=== PATIENT | female | born 1950 | race Caucasian/White ===

== ENCOUNTER 2021-08-15 18:54 | Inpatient (IN) ==
[2021-08-15 19:38] LABS: Basophils # (auto) 0.02 K/uL (0-0.2); Basophils % (auto) 0.6 %; Eosinophils # (auto) 0.15 K/uL (0-0.5); Eosinophils % (auto) 4.3 %; Hematocrit (blood only) 36.5 % (37-47); Hemoglobin 12.5 g/dL (12.0-16.0); Immature Granulocytes # (auto) 0.02 K/uL (0.00-0.02); Immature Granulocytes % (auto) 0.6 %; Lymphocytes # (auto) 1.02 K/uL (1.2-3.4); Lymphocytes % (auto) 29.6 %; Mean Corpuscular Hemoglobin 31.7 pg (25-34); Mean Corpuscular Hgb Conc 34.2 g/dL (32-36); Mean Corpuscular Volume 92.6 fL (80-100); Mean Platelet Volume 9.5 fL (7.4-10.4); Monocytes % (auto) 23.2 %; Neutrophils # (auto) 1.44 K/uL (1.4-6.5); Neutrophils % (auto) 41.7 %; Platelet Count 281 K/uL (130-400); Red Blood Count 3.94 M/uL (4.2-5.4); White Blood Count 3.45 K/uL (4.8-10.8)
--- NOTE | 2021-08-15 19:44 | XRay Report ---
SINGLE VIEW CHEST CLINICAL HISTORY: Cough and fever FINDINGS: An AP, portable, upright chest radiograph is obtained. No prior studies are available for c omparison at the time of dictation. A right subclavian central venous infusion port is in place. The cardiomediastinal silhouette is unremarkable noting atherosclerotic calcification of the thoracic aor ta. There is mild elevation of the right hemidiaphragm and bibasilar atelectasis. No airspace consoli dation or large pleural effusion is identified. No pneumothorax is seen. The skeletal structures are osteopenic. The bony thorax is grossly intact. IMPRESSION: No active disease in the chest. ACT 112: Negative or not required by law. Electronically signed by: Carl Loya M.D. 08/15/2021 7:43 PM
[2021-08-15 19:46] LABS: Albumin Level 2.6 gm/dl (3.4-5.0); Aspartate Aminotransferase 24 U/L (15-37); Blood Urea Nitrogen 11 mg/dl (7-18); Calcium 8.4 mg/dl (8.5-10.1); Carbon Dioxide 18 mmol/L (21-32); Chloride 99 mmol/L (98-107); Est GFR (African American) 106.3 ml/min; Est GFR (Non-African American) 91.7 ml/min; Glucose 100 mg/dl (70-99); Potassium 4.1 mmol/L (3.5-5.1); Sodium 129 mmol/L (136-145)
[2021-08-15 19:55] LABS: Alanine Aminotransferase 14 U/L (12-78); Albumin Globulin Ratio 0.5 (0.9-2); Alkaline Phosphatase 62 U/L (45-117); Bilirubin,Total 0.8 mg/dl (0.2-1); Globulin 5.2 gm/dl (2.5-4.0); Total Protein 7.8 gm/dl (6.4-8.2)
--- NOTE | 2021-08-15 21:39 | Emergency Department Note ---
History of Present Illness General Chief complaint: Illness Stated complaint: NOT EATING, HURTS TO TOUCH, WEAKNESS Time Seen by Provider: 08/15/21 21:31 History of Present Illness Maximum Pain Intensity: 10 This is a 70-year-old female that presents to the emergency department via private vehicle with complaints of "not eating, pain, weakness". The patient on initial evaluation was not accompanied by any family members. The patient noted that for the past 3 weeks she has been feeling weak, overall unwell and what she describes as sick. She also notes that a few nights ago she had some vomiting that has since resolved. She feels a diffuse weakness and tired sensation. She also has body aches and a headache. She denies any sore throat, chest pain, shortness of breath, nausea, vomiting, diarrhea or cough. No close contacts with similar symptoms. Per report it does appear that she has a history of multiple myeloma. She follows locally with Dr. Spears of [facility]. The [facility] salazar's then came to the bedside. He confirmed the history. It seems as though a lot of the symptoms started shortly after she was treated for a UTI earlier this month. I will note that the patient initially denied any pertinent past medical history, surgeries or allergies. The patient also was not able to state her current town where she resides. She also was unsure of the year and thought that it was 2000. Home Medications Medication Instructions Recorded Confirmed Type albuterol sulfate 90 mcg/actuation 2 puff INHALATION Q4H PRN 08/15/21 08/15/21 History aerosol inhaler (ProAir HFA) aspirin 81 mg tablet,delayed 81 mg PO QAM 08/15/21 08/15/21 History release (Aspirin Low Dose) cetirizine 10 mg tablet (Zyrtec) 10 mg PO DAILY PRN 08/15/21 08/15/21 History clobetasol 0.05 % topical cream 1 applic TOPICAL BID PRN 08/15/21 08/15/21 History (Temovate) dexamethasone 4 mg tablet 20 mg PO WK 08/15/21 08/15/21 History (Decadron) enalapril maleate 10 mg tablet 10 mg PO QAM 08/15/21 08/15/21 History (Vasotec) epinephrine 0.3 mg/0.3 mL 0.3 mg IM ONCE PRN 08/15/21 08/15/21 History injection, auto-injector (EpiPen) levothyroxine 112 mcg tablet 112 mcg PO QAM 08/15/21 08/15/21 History (Synthroid) lorazepam 0.5 mg tablet (Ativan) 0.5 - 1 mg PO HS PRN 08/15/21 08/15/21 History ondansetron HCl 8 mg tablet 8 mg PO TID PRN 08/15/21 08/15/21 History paroxetine HCl 20 mg tablet (Paxil) 20 mg PO QAM 08/15/21 08/15/21 History pomalidomide 4 mg capsule See Rx Instructions .ROUTE .COMPLEX 08/15/21 08/15/21 History (Pomalyst) Allergies Allergy/AdvReac Type Severity Reaction Status Date / Time mushroom Allergy Severe Hives,Swell Unverified 08/15/21 23:23 ing adhesive Allergy Rash Unverified 08/15/21 23:23 bee venom protein (honey bee) Allergy Anaphylaxis Unverified 08/15/21 23:23 latex Allergy Rash Unverified 08/15/21 23:23 morphine Allergy Excess Unverified 08/15/21 23:23 Drowsiness Penicillins Allergy Tongue Unverified 08/15/21 23:23 Swelling Past Med/Surg History Medical History Hx of multiple myeloma Surgical History (Updated 08/16/21 @ 04:42 by Maxi Noriega PA-C) No pertinent past surgical history Social History Smoking Status: Never smoker Preferred Language: Setsw[place] Feels Safe at Home: Yes Review of Systems A total of 10 systems reviewed and were otherwise negative Physical Exam Vital Signs Vital Signs - 24 hr 08/15/21 19:05 Temperature 37.3 C Temperature Source Temporal Artery Scan Pulse Rate 72 Respiratory Rate 20 Respiratory Effort / Characteristics Non-Labored Spontaneous Respiratory Depth Normal Respiratory Pattern Regular Blood Pressure 126/71 Blood Pressure Mean 89 Blood Pressure Position Sitting Pulse Oximetry 98 Oxygen Delivery Method Room Air Sepsis Recent Fever Within 48 Hours No Sepsis New/Unexplained Change in Mental Status No Sepsis Action Taken by Nursing No Action Required VITAL SIGNS - Vital signs and nursing notes were reviewed. Stable and afebrile. GENERAL -70-year-old female appearing her stated age who is in no acute distress. Communicates well with provider and answers questions appropriately. SKIN - Without rashes. No meningeal or petechial rash. HEAD - NC/AT. EYES - PERRL with EOMI bilaterally. Sclera anicteric. EARS - No deformities of external structures noted on gross examination bilaterally. NOSE - Midline and without cyanosis. MOUTH/OROPHARYNX - Without perioral cyanosis. NECK - Neck with FROM. No nuchal rigidity. LUNGS - Chest wall symmetric without accessory muscle use, intercostals retractions, or central cyanosis. Normal vesicular breath sounds CTA B/L. No wheezes, rales, or rhonchi appreciated. CARDIAC - RRR with S1/S2. No murmur, rubs, or gallops appreciated. ABDOMEN - Abdominal contour normal without pulsations or visible masses. BS normoactive all four quadrants. No tenderness, palpable masses, hepatosplenomegaly, or ascites noted. EXTREMITIES - No clubbing or peripheral cyanosis. +5/5 strength noted in UE/LE bilaterally. NEUROLOGIC - Cranial nerves II through XII grossly intact. PSYCH -patient is alert and oriented to person and place but not to day, month or year. She is also unable to state the current town where she resides. Othe rwise, cooperates fully with examiner. Pt is very pleasant and interacts well with examiner. Course Administered Medications Lactated Ringer's (Lr) 1,000 mls @ 100 mls/hr IV .Q10H STA Stop: 08/16/21 08:18 Last Admin: 08/15/21 22:51 Dose: 100 mls/hr Documented by: [id number] Discontinued Medications Gadobutrol (Gadobutrol 65ml Vial) 7 ml IV ONCE ONE Stop: 08/16/21 01:31 Last Admin: 08/16/21 01:30 Dose: 7 ml Documented by: [id number] Medical Decision Making Laboratory Data Result diagrams: 08/15/21 19:18 08/15/21 19:18 Lab Results 08/15/21 08/15/21 08/15/21 Range/Units 19:18 19:18 19:18 WBC 3.45 L (4.8-10.8) K/uL RBC 3.94 L (4.2-5.4) M/uL Hgb 12.5 (12.0-16.0) g/dL Hct 36.5 L (37-47) % MCV 92.6 (80-100) fL MCH 31.7 (25-34) pg MCHC 34.2 (32-36) g/dL RDW Std Deviation 51.0 H (36.4-46.3) fL RDW Coeff of Ryan 15.0 H (11.5-14.5) % Plt Count 281 (130-400) K/uL MPV 9.5 (7.4-10.4) fL Immature Gran % (Auto) 0.6 % Neut % (Auto) 41.7 % Lymph % (Auto) 29.6 % Russell % (Auto) 23.2 % Eos % (Auto) 4.3 % Baso % (Auto) 0.6 % Neut # (Auto) 1.44 (1.4-6.5) K/uL Lymph # (Auto) 1.02 L (1.2-3.4) K/uL Russell # (Auto) 0.80 H (0.11-0.59) K/uL Eos # (Auto) 0.15 (0-0.5) K/uL Baso # (Auto) 0.02 (0-0.2) K/uL Immature Gran # (Auto) 0.02 (0.00-0.02) K/uL Sodium 129 L (136-145) mmol/L Potassium 4.1 (3.5-5.1) mmol/L Chloride 99 (98-107) mmol/L Carbon Dioxide 18 L (21-32) mmol/L Anion Gap 12.0 H (3-11) BUN 11 (7-18) mg/dl Creatinine 0.64 (0.6-1.2) mg/dl Est Cr Clr Drug Dosing Not Reportable Est GFR ( Amer) 106.3 ml/min Est GFR (Non-Af Amer) 91.7 ml/min BUN/Creatinine Ratio 17.0 (10-20) Glucose 100 H (70-99) mg/dl Osmolality (280-300) mOsm/kg Lactate (0.4-2.0) mmol/L Calcium 8.4 L (8.5-10.1) mg/dl Magnesium (1.8-2.4) mg/dl Total Bilirubin 0.8 (0.2-1) mg/dl AST 24 (15-37) U/L ALT 14 (12-78) U/L Alkaline Phosphatase 62 (45-117) U/L Total Protein 7.8 (6.4-8.2) gm/dl Albumin 2.6 L (3.4-5.0) gm/dl Globulin 5.2 H (2.5-4.0) gm/dl Albumin/Globulin Ratio 0.5 L (0.9-2) Procalcitonin (0-0.5) ng/ml TSH (0.300-4.500) uIu/ml Lyme Disease IgG Ab (Negative) Lyme Disease IgM Ab (Negative) COVID-19 Eval Order Covid19 at [facility] SARS-CoV-2 (PCR) (Negative) 08/15/21 08/15/21 08/15/21 Range/Units 19:18 19:18 19:18 WBC (4.8-10.8) K/uL RBC (4.2-5.4) M/uL Hgb (12.0-16.0) g/dL Hct (37-47) % MCV (80-100) fL MCH (25-34) pg MCHC (32-36) g/dL RDW Std Deviation (36.4-46.3) fL RDW Coeff of Ryan (11.5-14.5) % Plt Count (130-400) K/uL MPV (7.4-10.4) fL Immature Gran % (Auto) % Neut % (Auto) % Lymph % (Auto) % Russell % (Auto) % Eos % (Auto) % Baso % (Auto) % Neut # (Auto) (1.4-6.5) K/uL Lymph # (Auto) (1.2-3.4) K/uL Russell # (Auto) (0.11-0.59) K/uL Eos # (Auto) (0-0.5) K/uL Baso # (Auto) (0-0.2) K/uL Immature Gran # (Auto) (0.00-0.02) K/uL Sodium (136-145) mmol/L Potassium (3.5-5.1) mmol/L Chloride (98-107) mmol/L Carbon Dioxide (21-32) mmol/L Anion Gap (3-11) BUN (7-18) mg/dl Creatinine (0.6-1.2) mg/dl Est Cr Clr Drug Dosing Est GFR ( Amer) ml/min Est GFR (Non-Af Amer) ml/min BUN/Creatinine Ratio (10-20) Glucose (70-99) mg/dl Osmolality (280-300) mOsm/kg Lactate (0.4-2.0) mmol/L Calcium (8.5-10.1) mg/dl Magnesium 2.2 (1.8-2.4) mg/dl Total Bilirubin (0.2-1) mg/dl AST (15-37) U/L ALT (12-78) U/L Alkaline Phosphatase (45-117) U/L Total Protein (6.4-8.2) gm/dl Albumin (3.4-5.0) gm/dl Globulin (2.5-4.0) gm/dl Albumin/Globulin Ratio (0.9-2) Procalcitonin 0.21 (0-0.5) ng/ml TSH 0.751 (0.300-4.500) uIu/ml Lyme Disease IgG Ab (Negative) Lyme Disease IgM Ab (Negative) COVID-19 Eval Order SARS-CoV-2 (PCR) NEGATIVE (Negative) 08/15/21 08/15/21 08/15/21 Range/Units 22:13 22:13 22:13 WBC (4.8-10.8) K/uL RBC (4.2-5.4) M/uL Hgb (12.0-16.0) g/dL Hct (37-47) % MCV (80-100) fL MCH (25-34) pg MCHC (32-36) g/dL RDW Std Deviation (36.4-46.3) fL RDW Coeff of Ryan (11.5-14.5) % Plt Count (130-400) K/uL MPV (7.4-10.4) fL Immature Gran % (Auto) % Neut % (Auto) % Lymph % (Auto) % Russell % (Auto) % Eos % (Auto) % Baso % (Auto) % Neut # (Auto) (1.4-6.5) K/uL Lymph # (Auto) (1.2-3.4) K/uL Russell # (Auto) (0.11-0.59) K/uL Eos # (Auto) (0-0.5) K/uL Baso # (Auto) (0-0.2) K/uL Immature Gran # (Auto) (0.00-0.02) K/uL Sodium (136-145) mmol/L Potassium (3.5-5.1) mmol/L Chloride (98-107) mmol/L Carbon Dioxide (21-32) mmol/L Anion Gap (3-11) BUN (7-18) mg/dl Creatinine (0.6-1.2) mg/dl Est Cr Clr Drug Dosing Est GFR ( Amer) ml/min Est GFR (Non-Af Amer) ml/min BUN/Creatinine Ratio (10-20) Glucose (70-99) mg/dl Osmolality 267 L (280-300) mOsm/kg Lactate 1.0 (0.4-2.0) mmol/L Calcium (8.5-10.1) mg/dl Magnesium (1.8-2.4) mg/dl Total Bilirubin (0.2-1) mg/dl AST (15-37) U/L ALT (12-78) U/L Alkaline Phosphatase (45-117) U/L Total Protein (6.4-8.2) gm/dl Albumin (3.4-5.0) gm/dl Globulin (2.5-4.0) gm/dl Albumin/Globulin Ratio (0.9-2) Procalcitonin (0-0.5) ng/ml TSH (0.300-4.500) uIu/ml Lyme Disease IgG Ab Negative (Negative) Lyme Disease IgM Ab Negative (Negative) COVID-19 Eval Order SARS-CoV-2 (PCR) (Negative) Imaging Data Radiologist's Impression: Chest X-Ray 08/15/21 19:16 SINGLE VIEW CHEST CLINICAL HISTORY: Cough and fever FINDINGS: An AP, portable, upright chest radiograph is obtained. No prior studies are available for comparison at the time of dictation. A right subclavian central venous infusion port is in place. The cardiomediastinal silhouette is unremarkable noting atherosclerotic calcification of the thoracic aorta. There is mild elevation of the right hemidiaphragm and bibasilar atelectasis. No airspace consolidation or large pleural effusion is identified. No pneumothorax is seen. The skeletal structures are osteopenic. The bony thorax is grossly intact. IMPRESSION: No active disease in the chest. ACT 112: Negative or not required by law. Electronically signed by: Carl Loya M.D. 08/15/2021 7:[address] HEAD: No ICH, mass effect or edema. No evidence of acute cortical stroke. Lytic calvarial lesions. Old facial trauma Radiologist: Khalif Angeles M.D. Study ready at 22:36 and initial results transmitted at 22:38 MDM Narrative Patient was seen and evaluated as above in room C 12. Review was performed of nursing notes and vital signs. I did review pertinent previous visits and patient history. After obtaining a thorough history and physical examination the above work up was performed. Patient presents to us today with 3 weeks of overall fatigue, weakness, diarrhea, loss of appetite. She is overall nontoxic on exam but is not oriented to time. No signs of meningitis or encephalitis on exam. Vital signs overall stable. Initially the patient denied any pertinent past medical history, surgeries or allergies. Patient's then came to bedside and was able to confirm she has a history of multiple myeloma. Patient has never been to this facility before. She follows with Dr. Spears of [facility] for her multiple myeloma. No focal weakness or deficit on exam. Options of care were discussed with the patient and at bedside. IV access was established. Labs were drawn. Chest x-ray was already performed. This was negative. Leukopenia noted at 3.45. No anemia. No emergent metabolic disturbance beyond that of mild hyponatremia at 129. Carbon dioxide 18. Glucose 100. Pro-Martin 0.21. TSH reveals euthyroid state. Covid testing negative. EKG was performed. This reveals normal sinus rhythm at a rate of [address] elevation. QTc 423. QRS 86. With the patient having the hyponatremia at 129 in the setting of symptoms as listed above it is felt that further evaluation and management the inpatient setting is warranted. CT scan was obtained of the head as the patient was not oriented to time and believe that it was 2000. CT scan of the head negative for emergent process. Case discussed with the hospitalist. Please refer to further documentation regarding her stay. Case was discussed with the attending physician. GCS: 15 In the evaluation and treatment of this patient the following differential diagnoses were entertained: Meningitis, encephalitis, electrolyte disturbance, TX, PE, dehydration, infection, among others. Impression & Plan Acute hyponatremia, Fatigue, Weakness Discharge Plan Visit Data Chief Complaint: Illness Stated Complaint: NOT EATING, HURTS TO TOUCH, WEAKNESS ED Provider: Omar Caballero ED Midlevel Provider: Maxi Noriega Discharge Problem: Acute hyponatremia, Fatigue, Weakness Patient Disposition: Admitted As Inpatient Condition: Good Discharge Instructions Interventions: ED Discharge Assessment Last Done: 08/16/21 03:49
[2021-08-15] MEDS ORDERED: LACTATED RINGER'S 1,000 ML IV STA (22:19)
[2021-08-15 23:30] LABS: Magnesium 2.2 mg/dl (1.8-2.4); Thyroid Stimulating Hormone 0.751 uIu/ml (0.300-4.500)
[2021-08-15 23:52] LABS: Lyme Ab IgG w/WB Rflx Negative (Negative); Lyme Ab IgM w/WB Rflx Negative (Negative)
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
[2021-08-16] MEDS ORDERED: GADOBUTROL 65ML VIAL IV ONE (01:30)
[2021-08-16] MEDS ORDERED: PROMETHAZINE HCL 12.5 MG in SODIUM CHLORIDE 0.9% 50 ML IV PRN (02:43)
[2021-08-16] MEDS ORDERED: CETIRIZINE HCL 10 MG TABLET PO PRN (02:43)
[2021-08-16] MEDS ORDERED: ACETAMINOPHEN 325 MG TAB PO PRN (02:43)
[2021-08-16] MEDS ORDERED: CLOBETASOL PROPIONATE 0.05% OINT 15 GM TUBE EXT PRN (03:53)
[2021-08-16] MEDS: LEVOTHYROXINE SODIUM 112 MCG TABLET PO SCH (06:20)
[2021-08-16 06:47] LABS: Basophils # (auto) 0.01 K/uL (0-0.2); Basophils % (auto) 0.3 %; Eosinophils # (auto) 0.13 K/uL (0-0.5); Eosinophils % (auto) 3.7 %; Hematocrit (blood only) 32.1 % (37-47); Hemoglobin 10.7 g/dL (12.0-16.0); Immature Granulocytes # (auto) 0.01 K/uL (0.00-0.02); Immature Granulocytes % (auto) 0.3 %; Lymphocytes # (auto) 1.43 K/uL (1.2-3.4); Lymphocytes % (auto) 41.1 %; Mean Corpuscular Hemoglobin 30.7 pg (25-34); Mean Corpuscular Hgb Conc 33.3 g/dL (32-36); Mean Corpuscular Volume 92.2 fL (80-100); Monocytes # (auto) 0.83 K/uL (0.11-0.59); Monocytes % (auto) 23.9 %; Neutrophils # (auto) 1.07 K/uL (1.4-6.5); Neutrophils % (auto) 30.7 %; Platelet Count 244 K/uL (130-400); RDW Coefficient of Variation 15.1 % (11.5-14.5); RDW Standard Deviation 51.3 fL (36.4-46.3); Red Blood Count 3.48 M/uL (4.2-5.4); White Blood Count 3.48 K/uL (4.8-10.8)
[2021-08-16 07:19] LABS: BUN Creatinine Ratio 19.2 (10-20); Calcium 7.8 mg/dl (8.5-10.1); Creatinine Clr Calc Pharmacy 105.8 ml/min; Est GFR (Non-African American) 100.1 ml/min; Potassium 3.5 mmol/L (3.5-5.1)
--- NOTE | 2021-08-16 07:21 | CT Scan Report ---
CT head/brain wo con CLINICAL HISTORY: AMS Technique: Contiguous axial CT images of the head were acquired from the base of the skull to the ryan robert without intravenous contrast administration. Images were viewed in brain, subdural and [facility]. Automated dose lowering techniques and/or adjustment according to patient size were utilized for this exam. Comparison: None available at the time of this dictation. Findings: The ventricles, basal cisterns, and cerebral sulci are normal. There is no acute intracranial hemorrh age or evidence of acute territorial infarction. Neither mass effect, shift of the midline structures , nor abnormal extra-axial fluid collections are shown. Imaged portions of the paranasal sinuses and mastoid air cells are clear. The orbits appear normal. There are no acute fractures of the calvaria or scalp swelling. Multiple lytic lesions are seen with in the calvaria. Impression: 1. No acute intracranial hemorrhage, evidence of acute territorial infarction, or other acute intrac ranial disease process. 2. Multiple lytic lesions of the calvaria. ACT 112: Negative or not required by law. Electronically signed by: Lan Basurto M.D. 08/16/2021 7:19 AM
[2021-08-16] MEDS: ENALAPRIL MALEATE 10 MG TAB PO SCH (07:43)
[2021-08-16] MEDS: ASPIRIN 81 MG ECTAB PO SCH (07:43)
[2021-08-16] MEDS: PARoxetine HCL 20 MG TAB PO SCH (07:43)
--- NOTE | 2021-08-16 08:35 | Magnetic Resonance Report ---
MR brain wo/w con CLINICAL HISTORY: encephalopathy, cognitive impairment TECHNIQUE: Multiplanar and multisequence MR images of the brain were obtained prior to and following administration of gadolinium contrast. Comparison: None available at the time of this dictation. FINDINGS: No abnormal restricted diffusion is identified. The white matter is unremarkable. The ventricular sys tem is normal in appearance. There is no evidence of acute intraparenchymal hemorrhage. No extra axia l fluid collections are seen. There are no masses, mass effect, or midline shift. No abnormal enhance ment is seen. The corpus callosum, pituitary gland, and cerebellar tonsils appear grossly unremarkab le. Flow voids of the major intracranial arterial vessels are identified. The imaged portions of the para nasal sinuses, mastoid air cells, and orbits are unremarkable. Innumerable enhancing lesions are seen in the calvarium. IMPRESSION: No intracranial abnormalities. Innumerable enhancing lesions in the calvarium concerning for metastat ic disease or myeloma. ACT 112: Negative or not required by law. Electronically signed by: Lan Basurto M.D. 08/16/2021 8:34 AM
[2021-08-16] MEDS ORDERED: NSS + 20MEQ KCL 20 MEQ/1,000 ML BAG IV ONE (10:00)
--- NOTE | 2021-08-16 15:52 | Hospitalist Progress Note ---
Date of Service August 16, 2021 Assessment & Plan (1) Encephalopathy: Plan: Metastatic disease Ongoing short-term memory issues intermittently Likely secondary to metastatic disease Acute metabolic encephalopathy MRI Brain:No intracranial abnormalities. Innumerable enhancing lesions in the calvarium concerning for metastatic disease or myeloma. Mental status seem to be back to baseline Neurology consulted for input Follow up Cultures-- pending Hyponatremia secondary to diarrheal illness Rule out C. difficile if recurrence of diarrhea Monitor sodium levels Sodium 131 Urine osmolality, urine sodium pending H/O UTI recently UA pending H/O Recurrent multiple myeloma S/P HSCT Ongoing chemotherapy Follows with [facility] oncology Will need follow-up with oncology upon discharge Resume promalidomide as able Hypertension BP stable Continue enalapril Hypothyroidism Euthyroid Continue levothyroxine DVT Px: Lovenox SQ Code Status Full code Admission and Anticipated Discharge Date Admission Date: August 16, 2021 Subjective Patient is seen and examined at bedside States feeling much better today Admits to having short term memory issues intermittently Denies any chest pain, shortness breath, dizziness, nausea, vomiting. Offers no other complaints Review of Systems Review of Systems: All systems reviewed & are unremarkable except as noted in Subjective Physical Exam Physical Exam: Physical Exam: Vitals signs as noted above General Appearance:Moderately built and nourished, no apparent distress Head: normocephalic, Atraumatic Eyes: normal inspection, EOMI Neck: supple, Trachea midline Respiratory/Chest: Normal breath sounds, CTA, No accessory muscle use Cardiovascular: S1, S2, No murmur Abdomen/GI:Soft, Non tender, Bowel sounds present Extremities/Musculoskeletal:normal inspection, no edema Neurologic/Psych:AAOX3, grossly no focal neurological deficits Skin: normal color, warm Results & Data Results & Data ([facility]) Vital Signs (Past 12 Hours) Vital Signs Temp Pulse Pulse Resp BP Pulse Ox 08/16/21 14:54 36.9 C 65 18 110/69 95 08/16/21 11:15 36.7 C 58 L 18 121/71 96 08/16/21 07:49 36.5 C 53 L 18 128/73 96 08/16/21 07:30 56 L 08/16/21 06:15 56 L 08/16/21 04:51 36.4 C L 63 18 128/69 98 08/16/21 04:23 36.4 C L 63 16 128/69 98 Laboratory Results Short CBC 08/15/21 08/16/21 Range/Units 19:18 06:24 WBC 3.45 L 3.48 L (4.8-10.8) K/uL Hgb 12.5 10.7 L (12.0-16.0) g/dL Hct 36.5 L 32.1 L (37-47) % Plt Count 281 244 (130-400) K/uL BMP 08/15/21 08/16/21 19:18 06:24 Sodium 129 L 131 L Potassium 4.1 3.5 Chloride 99 101 Carbon Dioxide 18 L 22 BUN 11 9 Creatinine 0.64 0.49 L Glucose 100 H 104 H Calcium 8.4 L 7.8 L Liver Function 08/15/21 Range/Units 19:18 Total Bilirubin 0.8 (0.2-1) mg/dl AST 24 (15-37) U/L ALT 14 (12-78) U/L Alkaline Phosphatase 62 (45-117) U/L Albumin 2.6 L (3.4-5.0) gm/dl
--- NOTE | 2021-08-16 22:40 | Consultation Report ---
NEUROLOGY CONSULTATION NOTE DATE OF CONSULTATION: 08/16/2021 REQUESTING PHYSICIAN: Dr. Rico. CHIEF COMPLAINT: Altered mental status. HISTORY OF PRESENT ILLNESS: A 70-year-old female with a history of multiple myeloma, presented to [facility] Emergency Department for forgetfulness/confusion. Per collateral/chart review, this has been ongoi ng for a period of time. Symptoms are thought to be attributed to chemo brain per family/. T he was concerned that the patient was going downhill; therefore, took her to the Emergency De partment. She was seen in the Emergency Department 3 days ago at [facility], recommended admission for electrolyte problems. The patient did leave AMA due to wait time and brought to the ER here in [facility] for further assessment. On exam today, patient reported feeling much better without comp laints or concerns. She denies pain. Neurology was consulted on admission for concern for altered m ental status. ALLERGIES: MUSHROOMS, ADHESIVE TAPE, BEE VENOM, LATEX, MORPHINE, PENICILLINS. HOME MEDICATIONS: Albuterol, aspirin, Decadron, Vasotec, epinephrine as needed, Synthroid, Ativan as needed, Zofran, Paxil, Pomalyst. PAST MEDICAL HISTORY: Hypertension, hypothyroidism, recurrent multiple myeloma, status post ongoing chemotherapy, anxiety, mood disorder. PAST SURGICAL HISTORY: Right knee surgery, vascular procedure, BTL, cholecystectomy, left hip replac ement. FAMILY HISTORY: Colon cancer, diabetes, hypothyroidism, asthma, breast cancer. SOCIAL HISTORY: Nonsmoker, no alcohol intake. Worked as a prior RN. REVIEW OF SYSTEMS: All other review of systems was negative except as noted above in the HPI. PHYSICAL EXAMINATION: VITAL SIGNS: Blood pressure 134/62, pulse of 66, temperature is 36.9 degrees Celsius. GENERAL: The patient is awake, alert, appears stated age, no distress. HEENT: Head is normocephalic and atraumatic. She has normal eyelids, normal conjunctivae. NECK: Supple. LUNGS: Normal respiratory effort. CARDIAC: Pulses are intact. ABDOMEN: Nondistended. SKIN: She has no skin rash. PSYCHIATRIC: Normal mood and normal affect. NEUROLOGIC: She is awake, alert, oriented to her age, month, and disoriented to the year. Her atten tion is normal. Her knowledge is poor. She is following simple commands and she can repeat. Speech is soft. Pupils are symmetric. Extraocular muscles are intact. Facial sensation intact. No facia l asymmetry. Intact hearing. Palate is symmetric. Good shoulder shrug. Tongue is midline. Gait ev aluation deferred. She has no tremor, no ataxia with [id number] testing. Sensation is intact. Muscle tone is normal. Muscle exam is 5/5 throughout except for the left hand weakness, which she is contributing to pain in the left wrist/swelling due to possible contusion. DIAGNOSTIC TESTING AND LABORATORY VALUES: WBC 3.48, hemoglobin 10.7, platelet count 244. Sodium is 131, potassium is 3.5, BUN is 9, creatinine 0.49, glucose is 104, calcium 7.8. Ammonia is 33.7. TSH is normal. Procalcitonin is 0.21. COVID-19 was negative. MRI of the brain showed no intracranial abnormality. Enhancing lesions in the calvarium concerning for metastatic disease or myeloma. No israel dence of acute stroke. The white matter is unremarkable. The ventricular system is normal in appear ance. No evidence of acute intraparenchymal hemorrhage. ASSESSMENT AND PLAN: A 70-year-old woman with history of multiple myeloma, status post/receiving candi motherapy, admitted with concerns for altered mental status/weakness. Upon admission, the patient wa s noted to have an elevated ammonia level as well as hyponatremia. The patient does not appear encep halopathic and very pleasant this afternoon. MRI of the brain is reassuring. It does not show signs of acute stroke or subcortical leukoencephalopathy or severe cerebral volume loss. On exam, the pat ient was disoriented to the year as well as the president and had some certain amnesia related to tavon or events. The patient certainly may have mild cognitive impairment in the setting of known multiple myeloma. At this time, I do not believe any acute neurological condition is going on and will certa inly benefit from seeing neurology on an outpatient basis for signs of cognitive impairment. The pat ient may benefit from formal neuropsychological testing as an outpatient. I would also encourage rev ersible causes of memory loss including checking a vitamin B12 level, folic acid level. We will defe r to the hospitalist team for management of her hyponatremia, which may be contributing to some of he r weakness. The patient can otherwise follow up with neurology on an outpatient basis. No additiona l neurological testing is needed while inpatient. Please contact me with any additional questions or concerns. Job ID: [id number]
[2021-08-17] MEDS: LEVOTHYROXINE SODIUM 112 MCG TABLET PO SCH (05:18)
[2021-08-17 06:18] LABS: Appearance Urine Clear (Clear); Bilirubin Urine Negative (Negative); Blood Urine Negative (Negative); Color Urine Yellow; Glucose Urine UA Negative (Negative); Ketones Urine 2+ (Negative); Leukocyte Esterase Urine Negative (Negative); Nitrite Urine Negative (Negative); Protein Urine Negative (Negative); Specific Gravity Urine 1.009 (1.000-1.030); Urobilinogen Urine Negative (Negative); pH Urine 6.5 (4.5-7.5)
[2021-08-17 06:36] LABS: Hematocrit (blood only) 31.2 % (37-47); Hemoglobin 10.7 g/dL (12.0-16.0); Mean Corpuscular Hemoglobin 31.2 pg (25-34); Mean Corpuscular Hgb Conc 34.3 g/dL (32-36); Mean Platelet Volume 9.3 fL (7.4-10.4); Platelet Count 282 K/uL (130-400); RDW Coefficient of Variation 15.1 % (11.5-14.5); RDW Standard Deviation 50.5 fL (36.4-46.3); Red Blood Count 3.43 M/uL (4.2-5.4); White Blood Count 2.75 K/uL (4.8-10.8)
[2021-08-17 07:00] LABS: BUN Creatinine Ratio 15.5 (10-20); Calcium 7.7 mg/dl (8.5-10.1); Creatinine Clr Calc Pharmacy 123.8 ml/min; Est GFR (African American) 122.1 ml/min; Est GFR (Non-African American) 105.3 ml/min; Magnesium 2.3 mg/dl (1.8-2.4); Potassium 3.4 mmol/L (3.5-5.1)
[2021-08-17] MEDS: ENALAPRIL MALEATE 10 MG TAB PO SCH (07:35)
[2021-08-17] MEDS: ASPIRIN 81 MG ECTAB PO SCH (07:35)
[2021-08-17] MEDS: PARoxetine HCL 20 MG TAB PO SCH (07:35)
[2021-08-17] MEDS ORDERED: POTASSIUM CHLORIDE CRTAB 20 MEQ TABCR PO ONE (08:07)
--- NOTE | 2021-08-17 12:00 | Electrocardiogram Report ---
Test Reason : Blood Pressure : / mmHG Vent. Rate : 071 BPM Atrial Rate : 071 BPM P-R Int : 152 ms QRS Dur : 086 ms QT Int : 390 ms P-R-T Axes : 031 036 038 degrees QTc Int : 423 ms Poor data quality, interpretation may be adversely affected Normal sinus rhythm Normal ECG No previous ECGs available Confirmed by Rafiq San ([id number]) on 08/17/2021 12:00:03 PM Referred By: Rojelio Spears Confirmed By:Rafiq San
--- NOTE | 2021-08-17 17:48 | Hospitalist Progress Note ---
Date of Service August 17, 2021 Assessment & Plan (1) Encephalopathy: Plan: Metastatic disease Ongoing short-term memory issues intermittently Likely secondary to metastatic disease Acute metabolic encephalopathy MRI Brain:No intracranial abnormalities. Innumerable enhancing lesions in the calvarium concerning for metastatic disease or myeloma. Mental status is back to baseline Appreciate Neurology Input Needs formal neuropsychological testing as outpatient Needs follow-up with neurology upon discharge Abnormal blood culture 1/2: Staph species Likely contaminant Follow-up cultures Hyponatremia secondary to diarrheal illness Rule out C. difficile if recurrence of diarrhea Monitor sodium levels Sodium 135 Hypokalemia Replace electrolytes as needed H/O UTI recently UA not suggestive of UTI H/O Recurrent multiple myeloma S/P HSCT Ongoing chemotherapy Follows with [facility] oncology Will need follow-up with oncology upon discharge Resume promalidomide as able Hypertension BP stable Continue enalapril Hypothyroidism Euthyroid Continue levothyroxine DVT Px: Lovenox SQ Code Status Full code Admission and Anticipated Discharge Date Admission Date: August 16, 2021 Subjective Patient is seen and examined at bedside Feels tired No new complaints Denies any chest pain, shortness breath, dizziness, nausea, vomiting. Blood cultures growing staph species Review of Systems Review of Systems: All systems reviewed & are unremarkable except as noted in Subjective Physical Exam Physical Exam: Physical Exam: Vitals signs as noted above General Appearance:Moderately built and nourished, no apparent distress Head: normocephalic, Atraumatic Eyes: normal inspection, EOMI Neck: supple, Trachea midline Respiratory/Chest: Normal breath sounds, CTA, No accessory muscle use Cardiovascular: S1, S2, No murmur Abdomen/GI:Soft, Non tender, Bowel sounds present Extremities/Musculoskeletal:normal inspection, no edema Neurologic/Psych:AAOX3, grossly no focal neurological deficits Skin: normal color, warm Results & Data Results & Data ([facility]) Vital Signs (Past 12 Hours) Vital Signs Temp Pulse Pulse Resp BP BP Pulse Ox 08/17/21 16:56 61 08/17/21 15:45 36.4 C L 61 20 112/66 98 08/17/21 11:14 36.6 C 58 L 20 112/67 94 08/17/21 07:51 36.5 C 56 L 18 130/73 96 08/17/21 07:30 56 L Laboratory Results Short CBC 08/17/21 Range/Units 06:19 WBC 2.75 L (4.8-10.8) K/uL Hgb 10.7 L (12.0-16.0) g/dL Hct 31.2 L (37-47) % Plt Count 282 (130-400) K/uL BMP 08/17/21 06:19 Sodium 135 L Potassium 3.4 L Chloride 106 Carbon Dioxide 21 BUN 7 Creatinine 0.42 L Glucose 115 H Calcium 7.7 L Urine 08/17/21 Range/Units Unknown Urine Color Yellow Urine Appearance Clear (Clear) Urine pH 6.5 (4.5-7.5) Ur Specific [place] 1.009 (1.000-1.030) Urine Protein Negative (Negative) Urine Glucose (UA) Negative (Negative)
[2021-08-18] MEDS: LEVOTHYROXINE SODIUM 112 MCG TABLET PO SCH (05:43)
[2021-08-18 06:48] LABS: BUN Creatinine Ratio 13.2 (10-20); Calcium 8.3 mg/dl (8.5-10.1); Creatinine Clr Calc Pharmacy 102.7 ml/min; Est GFR (African American) 115.3 ml/min; Est GFR (Non-African American) 99.4 ml/min; Potassium 3.6 mmol/L (3.5-5.1)
[2021-08-18] MEDS: PARoxetine HCL 20 MG TAB PO SCH (07:57)
[2021-08-18] MEDS: ASPIRIN 81 MG ECTAB PO SCH (07:57)
[2021-08-18] MEDS: ENALAPRIL MALEATE 10 MG TAB PO SCH (07:57)
--- NOTE | 2021-08-18 12:59 | Hospitalist Progress Note ---
Date of Service August 18, 2021 Assessment & Plan (1) Encephalopathy: Plan: Metastatic disease Ongoing short-term memory issues intermittently Likely secondary to metastatic disease Acute metabolic encephalopathy MRI Brain:No intracranial abnormalities. Innumerable enhancing lesions in the calvarium concerning for metastatic disease or myeloma. Mental status is back to baseline Appreciate Neurology Input Needs formal neuropsychological testing as outpatient Advised to follow up with Neurology upon discharge Abnormal blood culture--Likely contaminant 1/2 Blood Culture: Coag Negative Staph not lugdnensis Hyponatremia secondary to diarrheal illness Rule out C. difficile if recurrence of diarrhea Monitor sodium levels Sodium 134 Hypokalemia Replace electrolytes as needed H/O UTI recently UA not suggestive of UTI H/O Recurrent multiple myeloma S/P HSCT Ongoing chemotherapy Follows with [facility] oncology Will need follow-up with oncology upon discharge Resume promalidomide Hypertension BP stable Continue enalapril Hypothyroidism Euthyroid Continue levothyroxine DVT Px: Lovenox SQ Code Status Full code Admission and Anticipated Discharge Date Admission Date: August 16, 2021 Subjective Patient is seen and examined at bedside States feeling well today No new complaints Eager to get discharged Denies any chest pain, shortness breath, dizziness, nausea, vomiting. Review of Systems Review of Systems: All systems reviewed & are unremarkable except as noted in Subjective Physical Exam Physical Exam: Physical Exam: Vitals signs as noted above General Appearance:Moderately built and nourished, no apparent distress Head: normocephalic, Atraumatic Eyes: normal inspection, EOMI Neck: supple, Trachea midline Respiratory/Chest: Normal breath sounds, CTA, No accessory muscle use Cardiovascular: S1, S2, No murmur Abdomen/GI:Soft, Non tender, Bowel sounds present Extremities/Musculoskeletal:normal inspection, no edema Neurologic/Psych:AAOX3, grossly no focal neurological deficits Skin: normal color, warm Results & Data Results & Data ([facility]) Vital Signs (Past 12 Hours) Vital Signs Temp Pulse Pulse Resp BP Pulse Ox 08/18/21 11:23 36.3 C L 70 18 140/83 98 08/18/21 07:41 52 L 08/18/21 07:17 36.3 C L 90 16 119/64 99 08/18/21 03:00 36.5 C 51 L 20 125/63 96 08/18/21 01:57 63 Laboratory Results [facility] 08/18/21 05:56 Sodium 134 L Potassium 3.6 Chloride 107 Carbon Dioxide 22 BUN 7 Creatinine 0.50 L Glucose 108 H Calcium 8.3 L
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
== END 2021-08-18 15:07 | disposition home or self-care (01) | DRG 71 ==
LOC: ED 18:54 → EDINP 08-16 00:14 → 2N 08-16 03:49